=== PATIENT | male | born 1935 | race Caucasian/White ===

== ENCOUNTER 2017-05-12 12:03 | Inpatient (IN) | payer MEDICARE ==
[~2017-05-12] VITALS: Ht 170.2 cm; Wt 94.3 kg
[2017-05-24] MEDS ORDERED: MULTTAB23 PO (09:13)
[2017-05-24] MEDS ORDERED: ASPI81TA5 PO (09:13)
[2017-05-24] MEDS ORDERED: LISI10TA3 PO (09:13)
[2017-05-24] MEDS ORDERED: PROBCAP28 PR (09:13)
[2017-06-08] MEDS ORDERED: POVIDONE IODINE 7.5% SCRUB 118 ML BOTTLE TOPICAL SCH (05:45)
[2017-06-08] MEDS ORDERED: VANCOMYCIN 1000 MG/NS 250 ML (for <70 kg) IV SCH ×2 (05:45)
[2017-06-08] MEDS ORDERED: METOPROLOL TARTRATE 25 MG TAB PO PRN (05:45)
[2017-06-08] MEDS ORDERED: CHLORHEXIDINE GLUCONATE 2 % 1 PACK (2 CLOTHS) TOPICAL PRN (05:45)
[2017-06-08] MEDS ORDERED: INSULIN HUMAN REGULAR 1,000 UNITS/10 ML VIAL SQ PRN (05:45)
[2017-06-08] MEDS ORDERED: SODIUM CHLORID 0.9% 500 ML IV PRN (05:45)
[2017-06-08] MEDS ORDERED: LACTATED RINGER'S 1000 ML IV PRN (05:45)
[2017-06-08] MEDS ORDERED: ceFAZolin 2 GM PREMIX 50 ML IV SCH (05:45)
[2017-06-08] MEDS ORDERED: POVIDONE IODINE 5% (ANTISEPSIS KIT) 4 APPLICATIONS EACH NARE PRN (05:45)
[2017-06-08] MEDS ORDERED: EXPAREL PERI-ARTICULAR INJECTION (TOTAL VOL. 60 ML) P-ARTICULR SCH ×2 (06:00)
[2017-06-08] MEDS ORDERED: TRANEXAMIC ACID INJ 897 MG in SODIUM CHLORIDE 0.9% INJ 100 ML IV SCH (06:00)
[2017-06-08] MEDS ORDERED: ACETAMINOPHEN 1000 MG/100 ML 100 ML IV ONE (07:03)
[2017-06-08] MEDS ORDERED: GENTAMICIN SULFATE 80 MG/2 ML VIAL ONE (07:03)
[2017-06-08] MEDS ORDERED: HYDR-3288 PO (07:44)
[2017-06-08] MEDS ORDERED: XARE10TA PO (07:44)
[2017-06-08] MEDS ORDERED: MISCELLANEOUS NURSING INFORMATION XX PRN (07:45)
[2017-06-08] MEDS ORDERED: NALOXONE HCL 0.4 MG/ML AMP IV PRN (07:45)
[2017-06-08] MEDS ORDERED: MORPHINE SULFATE 8 MG/ML INJ IM PRN (07:45)
[2017-06-08] MEDS ORDERED: ACETAMINOPHEN/HYDROcodone 325 MG/7.5 MG TAB PO PRN (07:45)
[2017-06-08] MEDS ORDERED: MISCELLANEOUS PHARMACY INFORMATION XX ONE (07:45)
[2017-06-08] MEDS ORDERED: SODIUM CHLORIDE 0.9% FLUSH 5 ML FLUSH IVF PRN (07:45)
[2017-06-08] MEDS ORDERED: MORPHINE SULFATE 30 MG/30 ML PCA IV SCH (07:45)
[2017-06-08] MEDS ORDERED: Post-op Orders (for Pharmacy) MISC XX ONE (07:45)
[2017-06-08] MEDS: SODIUM CHLORIDE 0.9% FLUSH 5 ML FLUSH IVF SCH ×2 (09:00→21:00)
[2017-06-08] MEDS: LISINOPRIL 10 MG TAB PO SCH (09:00)
[2017-06-08] MEDS: MAGNESIUM HYDROXIDE SUSP 30 ML CUP PO SCH ×2 (09:00→21:03)
--- NOTE | 2017-06-08 09:21 | MH ---
cc: SHERI JERRY DATE OF ADMISSION 06/08/2017 ADMISSION DIAGNOSIS Right hip osteoarthritis. HISTORY This is an 82-year-old male with significant right hip pain. Investigative studies shows evidence of severe arthritis of the right hip. Despite conservative care, the patient continued to be painful and symptomatic. He presents now for surgical treatment. PAST MEDICAL HISTORY, SOCIAL HISTORY AND FAMILY HISTORY, REVIEW OF SYSTEMS See attached notes. PHYSICAL EXAMINATION An 82-year-old male in moderate stress with his right hip. HEENT: Normocephalic, atraumatic. Pupils equal, round, reactive to light and accommodation. Extraocular motion intact. NECK: Supple. CHEST: Clear. HEART: Regular rate and rhythm. ABDOMEN: Soft and nontender with normoactive bowel sounds. MUSCULOSKELETAL: Examination of the right hip pain with range of motion especially with internal and external rotation. NEUROLOGIC AND VASCULAR: Examination is within normal limits. IMPRESSION Osteoarthritis right hip. PLAN Right total hip replacement arthroplasty, direct anterior exposure. CONSENT The risks for surgery including infection, bleeding, loss of motion, continued pain, need for further surgery, neurologic vascular injury. The patient understands these issues and wishes to press on with surgery as outlined above. MD NESTOR Hull/BRONWYN /6:59 AM /9:12 AM
--- NOTE | 2017-06-08 09:39 | PD.OP ---
cc: Wolf Marino MD Operative Report Date of Surgery: Jun 08, 2017 Preoperative Diagnosis: Osteoarthritis right hip Postoperative Diagnosis: Same Procedure: Right total hip replacement arthroplasty, direct anterior exposure Anesthesia: Gen. Surgeon: Wolf Marino Matte Cutter(s): MITALI Darby Operation and Findings: EBL: 400 cc INDICATION: This patient presents with significant hip pain related to severe osteoarthritis of the right hip. Despite extensive conservative care this patient continues to be painful and now presents for surgical treatment. NOTE: Adriana Darby PA-C was present for the entire surgical procedure as my assistant general manager. In my medical opinion her skill and care was necessary for the proper management of this patient. COMPONENTS: COMPANY: [employer] CUP: [place], 56 mm, 100 series, gription surface LINER: Altrx 36, neutral STEM: [place], size 10, high offset, hydroxyapatite-coated HEAD: 36 mm, metal, +1.5, /14 taper PROCEDURE: This patient was brought to the operating room and anesthetized in the supine position and positioned on the fracture table with both legs held extended. The right hip and leg was scrubbed with alcohol followed by Hibiclens followed by ChloraPrep and draped sterilely. Antibiotics were given within routine time window and a timeout was done. A 4 inch incision was made starting 2 cm distal and 2 cm lateral to the anterior superior iliac spine. The fascia anatoly was opened longitudinally. The interval between the fascia anatoly and the rectus was opened down to the capsule of the hip joint. Retractors were positioned allowing good visualization of the capsule. This was opened longitudinally and flaps were created. Stay sutures were utilized. Exposure was excellent. The neck was cut at the proper location using fluoroscopy as a guide. The head was removed. Deep retractors were positioned allowing good visualization of the acetabulum. Acetabulum was deepened down to the floor starting with a proper size reamer and reaming up to 55 mm. A trial was utilized. Fluoroscopy was used to check position and confirmed satisfactory alignment. The rim was reamed with a to 6 mm reamer and the final cup was positioned in approximately 20 of anteversion and 40-45 of abduction. Position was satisfactory. A single hole eliminator was positioned followed by the final liner. The lifting hook was utilized. The leg was dropped to the floor, maximally externally rotated and brought across the midline. Retractors were positioned. A box osteotome was utilized followed by progressive broaching to the proper stem size. Trial reduction showed excellent alignment and fit. With 60 of external rotation the leg was dropped to the floor without evidence of anterior subluxation. The wound was irrigated. The final stem was inserted and was found to be very stable. The final reduction using the final head. Stability was as previously noted. Intraoperative x-rays were taken. The wound was irrigated copiously. Hemostasis was controlled. Local anesthesia was utilized. The capsule was repaired with #2 Tycron sutures. The fascia anatoly was repaired with running 0 PDS on a loop. Subcutaneous tissue was approximated with 2-0 Vicryl and skin with running intradermal 3-0 Vicryl followed by Steri-Strips. A sterile dressing was applied. The patient was awakened and taken to the recovery room in satisfactory condition. FINDINGS: There was severe osteoarthritis of the right hip. It was bone on bone in the cephalad portion of the acetabulum. The final fit and stability appeared to be excellent. We intentionally lengthened this right leg approximately 3-4 mm Wolf Marino MD Jun 08, 2017 09:39
[2017-06-08 10:05] VITALS: O2SAT 95
[2017-06-08] MEDS ORDERED: DO NOT ADM ANY ANTICOAGULANT DRUGS PRN (10:08)
[2017-06-08] MEDS: LACTATED RINGER'S 1000 ML INJ 1,000 ML IV SCH ×2 (10:30→20:30)
[2017-06-08] MEDS ORDERED: PROPOFOL 200 MG/20 ML AMP IV ONE (12:00)
[2017-06-08] MEDS ORDERED: ePHEDrine/NS 25 MG/5 ML SYR IV ONE (12:00)
[2017-06-08] MEDS ORDERED: ONDANSETRON HCL 4 MG/2 ML VIAL IV PUSH ONE ×2 (12:00→18:45)
[2017-06-08] MEDS ORDERED: PHENYLEPH/NS 1000 MCG/10 ML SYR IV ONE (12:00)
[2017-06-08] MEDS ORDERED: NEOSTIGMINE 3 MG/3 ML SYR IV ONE (12:00)
[2017-06-08] MEDS ORDERED: LACTATED RINGER'S 1000 ML INJ 2,000 ML IV ONE (12:00)
[2017-06-08 15:05] VITALS: O2SAT 96
[2017-06-08 15:23] VITALS: BP 149/71; PULSE 97; RESP 18; TEMP 96.4; O2SAT 97
[2017-06-08] MEDS: PCA - TOTAL MG MORPHINE DELIVERED PER SHIFT SCH ×2 (15:30→21:31)
--- NOTE | 2017-06-08 17:54 | RADRPT ---
EXAM DATE/TIME: 06/08/2017 08:13 [place] COMPARISON: No previous studies available for comparison. INDICATIONS : Right anterior hip replacement. MEDICAL HISTORY : Hypertension. Arthritis. SURGICAL HISTORY : Cholecystectomy. ENCOUNTER: Initial ACUITY: 1 day PAIN SCORE: Non-responsive. LOCATION: Right anterior hip. FINDINGS: C-arm matrix views reveal a total hip prosthesis well seated. CONCLUSION: Well-seated total hip prosthesis Reginaldo Patel MD on June 08, 2017 at 17:52 Board Certified Radiologist. This report was verified electronically.
[2017-06-08 19:42] VITALS: BP 147/73; PULSE 101; RESP 18; TEMP 97.5; O2SAT 98
[2017-06-08] MEDS: SENNOSIDES 8.6 MG TAB PO SCH (21:03)
[2017-06-09] VITALS (8 sets, daily range): BP systolic 114–142; BP diastolic 58–73; PULSE 76–109; RESP 17–18; TEMP 96.8–99.6; O2SAT 93–98
[2017-06-09] MEDS ORDERED: ONDANSETRON HCL 4 MG/2 ML VIAL IV PUSH PRN (01:00)
[2017-06-09] MEDS: PCA - TOTAL MG MORPHINE DELIVERED PER SHIFT SCH ×3 (06:26→21:33)
--- NOTE | 2017-06-09 07:53 | PD.ORT.PN ---
Subjective Subjective Remarks No complaints. Sitting in his chair. Ambulating with walker Objective Vitals Vital Signs Date Time Temp Pulse Resp B/P (MAP) Pulse Ox O2 Delivery O2 Flow Rate FiO2 06/09/17 06:26 18 06/09/17 03:06 98.8 89 18 114/62 (79) 95 06/09/17 00:18 98.3 101 17 128/58 (81) 96 06/08/17 21:31 18 06/08/17 19:42 97.5 101 18 147/73 (97) 98 06/08/17 15:30 18 06/08/17 15:23 96.4 97 18 149/71 (97) 97 06/08/17 15:05 94 16 96 Nasal Cannula 2 06/08/17 15:00 97.6 96 16 140/75 (96) 96 Nasal Cannula 2 06/08/17 14:00 95 16 143/74 (97) 95 Nasal Cannula 2 06/08/17 13:00 97 16 148/73 (98) 95 Nasal Cannula 2 06/08/17 12:00 100 16 149/71 (97) 94 Nasal Cannula 2 06/08/17 11:30 99 15 145/70 (95) 94 Nasal Cannula 2 06/08/17 11:00 97.8 97 15 140/75 (96) 98 Nasal Cannula 3 06/08/17 10:45 98 15 137/71 (93) 97 Nasal Cannula 3 06/08/17 10:36 15 06/08/17 10:31 15 06/08/17 10:30 96 14 138/69 (92) 96 Nasal Cannula 3 06/08/17 10:15 98 14 139/70 (93) 96 Nasal Cannula 3 06/08/17 10:05 98.7 103 12 140/75 (96) 95 Nasal Cannula 3 I/O 06/08/17 06/08/17 06/08/17 06/09/17 06/09/17 06/09/17 07:00 15:00 23:00 07:00 15:00 23:00 Intake Total 2500 ml 940 ml Output Total 1200 ml 1900 ml 2900 ml Balance 1300 ml -960 ml -2900 ml Intake Oral 360 ml IV Total 580 ml Other 2500 ml Output Urine Total 800 ml 1900 ml 2900 ml Estimated Blood Loss 400 ml # Voids 1 # Bowel Movements 0 2 Objective Remarks Dressing dry. Mild swelling. No calf tenderness. Neuro exam normal Assessment & Plan Ortho Post Op Day #: 1 Problem List: Assessment and Plan Osteoarthritis right hip. Surgery: Right SHANIA, anterior: POD #1 PLAN: Discharge to home if does well with physical therapy. [place] for pain. Home healthcare. Home physical therapy. Xarelto for 25 days. Follow-up in 2 weeks Wolf Marino MD Jun 09, 2017 07:53
--- NOTE | 2017-06-09 07:56 | HHI.DS ---
Discharge Summary Admission Date Jun 08, 2017 at 05:26 Discharge Date: Jun 09, 2017 Admitting Diagnosis Osteoarthritis right hip Diagnosis: (1) Osteoarthritis of right hip Diagnosis: Principal ICD Codes: M16.11 - Unilateral primary osteoarthritis, right hip Procedures Right total hip replacement, direct anterior Brief History This is a 82 year old male patient with a long-standing history of arthritis of the right hip. Conservative care included medications, injections, altered activity, physical therapy. He failed conservative care and was felt to be a candidate for hip replacement PE at Discharge Dressing dry. Mild swelling. No calf tenderness. Neuro exam normal Hospital Course He did well first postop day. He was out of bed and ambulating. He was seen by physical therapy and felt to be satisfactory for discharge to home Pt Condition on Discharge: Good Discharge Disposition: Disch w/ Home Health Serv Discharge Instructions Diet Instructions: As Tolerated, No Restrictions Activities You Can Perform: Weight Bearing as Wolf Connor MD Jun 09, 2017 07:56
[2017-06-09] MEDS: MAGNESIUM HYDROXIDE SUSP 30 ML CUP PO SCH ×2 (08:13→21:31)
[2017-06-09] MEDS: LISINOPRIL 10 MG TAB PO SCH (08:13)
[2017-06-09] MEDS: RIVAROXABAN 10 MG TAB PO SCH (08:13)
[2017-06-09] MEDS: ACETAMINOPHEN/HYDROcodone 325 MG/7.5 MG TAB PO PRN ×3 (08:14→18:00)
[2017-06-09] MEDS: LACTATED RINGER'S 1000 ML INJ 1,000 ML IV SCH ×2 (08:14→21:30)
[2017-06-09] MEDS: SODIUM CHLORIDE 0.9% FLUSH 5 ML FLUSH IVF SCH ×2 (08:14→21:00)
[2017-06-09] MEDS ORDERED: WALKER WHEELS/F1 MIS (11:28)
[2017-06-09] MEDS ORDERED: COMMODE 3-IN-11 MIS (11:29)
--- NOTE | 2017-06-09 11:29 | HHI.DCPOC ---
Discharge Care Plan Diagnosis: (1) Osteoarthritis of right hip Your Health Problems Are: Incision/Drains Inflammation Goals to Promote Your Health * To prevent worsening of your condition and complications * To maintain your health at the optimal level Directions to Meet Your Goals Take your medications as prescribed Follow your dietary instruction Follow activity as directed Keep your appointments as scheduled Take your immunizations and boosters as scheduled If your symptoms worsen call your PCP, if no PCP go to Urgent Care Center or Emergency Room Smoking is Dangerous to Your Health. Avoid second hand smoke Call the 24-hour hour crisis hotline for domestic abuse at Paola Rayo Jun 09, 2017 11:29
--- NOTE | 2017-06-09 11:31 | HHI.FF ---
Face to Face Verification Diagnosis: (1) Osteoarthritis of right hip Physical Therapy Gait training, Safety evaluation, Transfer training, bed to chair Hip: Total hip, Protocol: Right, Progress to weight bearing Right LE Weight Bearing: WB as tolerated Additional Instructions PT 4 days/wk for 2 weeks. WBAT RLE. Anterior approach. Gait training, transfers, LE strengthening. Nursing RN Days per Week: 2 x Week(s): 1 Dressing Changes: Do not change dressing Additional Instructions Vitals assessment. Dressing assessment - do not change unless saturated. I have seen patient Kwesi Morris on 06/09/17. My clinical findings support the need for the requested home health care services because: Limited ability to care for self High risk of falls I certify that my clinical findings support that this patient is homebound because: Post-op weakness Unsteady gait/balance Paola Rayo Jun 09, 2017 11:31
--- NOTE | 2017-06-09 11:34 | HHI.DS ---
Discharge Summary Admission Date Jun 08, 2017 at 05:26 Discharge Date: Jun 10, 2017 Admitting Diagnosis see below Diagnosis: (1) Osteoarthritis of right hip Diagnosis: Principal ICD Codes: M16.11 - Unilateral primary osteoarthritis, right hip Procedures Right total hip replacement, direct anterior Brief History This is a 82 year old male patient with a history of bilateral hip pain. He began having increased right hip pain following treatment of his left hip by early 2016. Imaging studies were performed and he was found to have substantial right hip arthritis. Conservative measures were pursued in the form of diclofenac, physical therapy, and a steroid injection. All treatments provided only temporary relief and the patient's function continued to decline. Surgical treatment was then recommended in the form of right total hip arthroplasty, direct anterior approach. The patient agreed and presents now for surgical treatment. PE at Discharge Dressing dry. Mild swelling. No calf tenderness. Neuro exam normal Hospital Course Surgical treatment was performed on the day of admission without complication. He recovered well in PACU and was transferred to the orthopaedic floor. Pain was controlled with IV and oral medications. DVT prophylaxis was initiated with Xarelto pod#1. He was compliant with physical therapy and all restrictions. He struggled with urinary retention day one but that resolved day 2. After 2 days he was found to be stable and discharged home with home health care. He was instructed to continue his xarelto for 25 days, continue a high fiber diet for 3-5 days and to continue physical therapy. Pt Condition on Discharge: Stable Discharge Disposition: Disch w/ Home Health Serv Discharge Instructions Diet Instructions: As Tolerated, No Restrictions, High Fiber Diet Activities You Can Perform: Weight Bearing as Zain Additional Activity Instruc.: Anterior SHANIA procotol New Medications: Commode 3-in-1 (Commode 3-in-1) 1 Mis Mis EA .ROUTE DIRECTED, #1 0 Refills Hydrocodone-Acetaminophen ([place]) 7.5-325 mg Tab 1 TAB PO Q4H PRN for PAIN, #50 TAB 0 Refills Rivaroxaban (Xarelto) 10 Mg Tab 10 MG PO DAILY PRN for Prevent Blood Clot, #25 TAB 0 Refills Walker with Front Wheels (Walker with Front Wheels) 1 Mis Mis EA .ROUTE DIRECTED, #1 0 Refills Continued Medications: Aspirin (Aspirin DR) 81 Mg Tabdr 81 MG PO EVERY OTHER DAY, TAB 0 Refills Lisinopril (Lisinopril) 10 Mg Tab 10 MG PO DAILY, #30 TAB 0 Refills Multiple Vitamins W/ Minerals (Multi For Him 50+) 1 Tab Tab 1 TAB PO DAILY Probiotic Product (Probiotic Daily) 1 Cap Cap 1 CAP HI DAILY Paola Rayo Jun 09, 2017 11:34
[2017-06-09] MEDS: TAMSULOSIN HCL 0.4 MG CAP PO SCH (17:59)
[2017-06-09] MEDS: SENNOSIDES 8.6 MG TAB PO SCH (21:31)
[2017-06-10 03:08] VITALS: O2SAT 96
[2017-06-10 08:00] VITALS: BP 129/74; PULSE 114; RESP 18; TEMP 98.6; O2SAT 92
[2017-06-10] MEDS: SODIUM CHLORIDE 0.9% FLUSH 5 ML FLUSH IVF SCH (08:38)
[2017-06-10] MEDS: LISINOPRIL 10 MG TAB PO SCH (08:38)
[2017-06-10] MEDS: ACETAMINOPHEN/HYDROcodone 325 MG/7.5 MG TAB PO PRN (08:38)
[2017-06-10] MEDS: RIVAROXABAN 10 MG TAB PO SCH (08:38)
[2017-06-10] MEDS: TAMSULOSIN HCL 0.4 MG CAP PO SCH (08:38)
[2017-06-10] MEDS: MAGNESIUM HYDROXIDE SUSP 30 ML CUP PO SCH (08:38)
--- NOTE | 2017-06-10 08:48 | PD.ORT.PN ---
Subjective Subjective Remarks Doing well today. Right hi ppain well controlled on PO meds. Able to urinate well last night. Had a BM. Good appetite. Overall pleased. Ready to d/c home today. Objective Vitals Vital Signs Date Time Temp Pulse Resp B/P (MAP) Pulse Ox O2 Delivery O2 Flow Rate FiO2 06/10/17 03:08 96 06/09/17 23:20 98.2 95 18 122/59 (80) 97 06/09/17 19:25 99.6 76 18 142/73 (96) 98 06/09/17 16:00 97.5 105 18 139/69 (92) 94 06/09/17 14:19 93 06/09/17 12:00 98.5 105 18 142/71 (94) 97 I/O 06/09/17 06/09/17 06/09/17 06/10/17 06/10/17 06/10/17 07:00 15:00 23:00 07:00 15:00 23:00 Intake Total 600 ml 480 ml 480 ml Output Total 2900 ml 100 ml 700 ml 950 ml Balance -2900 ml 500 ml -220 ml -470 ml Intake Oral 600 ml 480 ml 480 ml Output Urine Total 2900 ml 100 ml 700 ml 950 ml # Voids 1 1 # Bowel Movements 2 0 0 1 Procedures Right total hip replacement, direct anterior Objective Remarks Sitting up in bed and RN at bedside VSS RLE Dressing c/d/i, no new drainage, mild swelling and warmth, no erythema, +motor at distal, +sens, +nvi calf supple, neg homans Assessment & Plan Ortho Post Op Day #: 2 Problem List: (1) Osteoarthritis of right hip ICD Codes: M16.11 - Unilateral primary osteoarthritis, right hip Qualifiers: Qualified Codes: M16.11 - Unilateral primary osteoarthritis, right hip Assessment and Plan Osteoarthritis right hip. Surgery: Right SHANIA, anterior: POD #2 Urinary retention resolved. Ok to d/c home w [facility] after PT today. [place] for pain. PT - WBAT RLE. Anterior shania protocol. Hold dressing changes unless saturated. Xarelto for 25 days. Follow-up in 2 weeks as scheduled. F2F written. Paola Rayo Jun 10, 2017 08:48
[2017-06-10] MEDS: LACTATED RINGER'S 1000 ML INJ 1,000 ML IV SCH (09:52)
== END 2017-06-10 12:34 | disposition home health service (06) | DRG 470 ==
LOC: HSDI 06-08 05:26 → EDUNIT# 06-08 07:30 → N06A 06-08 15:38
PROVIDERS: ADMIT Orthopaedic Surgery Orthopaedic Surgery of the Spine; ATTEND Orthopaedic Surgery Orthopaedic Surgery of the Spine
PROC: 0SR902A Replacement of Right Hip Joint with Metal on Polyethylene Synthetic Substitute, Uncemented, Open Approach (ICD-10-PCS; principal; 2017-06-08 07:13)
DX: M16.11 Unilateral primary osteoarthritis, right hip (principal); R33.9 Retention of urine, unspecified; I10 Essential (primary) hypertension; M54.5 Low back pain; Z87.891 Personal history of nicotine dependence
CPT/HCPCS: 73502; 76000; 86850; 86900; 86901; 86920; 94150; C1776; C9290; J0131; J0690; J1580; J2270; J2370; J2405; J2710; J3010; J3370; J7050; J7120

== ENCOUNTER → 2017-05-24 | Outpatient (CLI) | payer MEDICARE ==
[~2017-05-24] MED LIST: ASPI81TA5 PO; COMMODE 3-IN-11 MIS; HYDR-3288 PO; LISI10TA3 PO; MULTTAB23 PO; PROBCAP28 PR; WALKER WHEELS/F1 MIS; XARE10TA PO
[2017-05-24 10:05] LABS: AUTOMATED NEUTROPHIL # 3.7 TH/MM3 (1.8-7.7); BASOPHIL # 0.1 TH/MM3 (0-0.2); BASOPHIL % 0.8 % (0.0-2.0); EOSINOPHIL # 0.2 TH/MM3 (0-0.4); EOSINOPHIL % 2.5 % (0.0-4.0); HEMATOCRIT 44.4 % (39.0-51.0); HEMO FLAGS DIFF FINAL; LYMPH % 26.8 % (9.0-44.0); LYMPHOCYTE # 1.7 TH/MM3 (1.0-4.8); MEAN CORPUSCULAR HEMOGLOBIN 29.6 PG (27.0-34.0); MEAN CORPUSCULAR HGB CONC 34.4 % (32.0-36.0); MONO % 13.6 % (0.0-8.0); NEUT % 56.3 % (16.0-70.0); PLATELET COUNT 255 TH/MM3 (150-450); RED BLOOD COUNT 5.16 MIL/MM3 (4.50-5.90); RED CELL DISTRIBUTION WIDTH 13.8 % (11.6-17.2); WHITE BLOOD COUNT 6.5 TH/MM3 (4.0-11.0)
[2017-05-24 10:14] LABS: APTT (PATIENT) 29.6 SEC (24.3-30.1); PROTHROMBIN TIME - PATIENT 10.6 SEC (9.8-11.6)
[2017-05-24 10:30] LABS: POTASSIUM 4.5 MEQ/L (3.5-5.1)
[2017-05-24 10:51] LABS: BACTERIA, URINE RARE /hpf; BLOOD, URINE NEG (NEG); COMMENT (UR) CULTURE INDICATED; CULTURE IF INDICATED CULTURE INDICATED; GLUCOSE,URINE NEG (NEG); KETONE, URINE NEG (NEG); MUCUS URINE FEW /lpf (OCC); NITRITE,URINE NEG (NEG); PH, URINE 5.5 (5.0-8.5); URINE COLOR YELLOW (YELLW/STRAW)
== END ==
LOC: CPRE 08:05
PROVIDERS: ATTEND Orthopaedic Surgery Orthopaedic Surgery of the Spine
DX: Z01.810 Encounter for preprocedural cardiovascular examination (principal); Z01.812 Encounter for preprocedural laboratory examination; Z79.01 Long term (current) use of anticoagulants; M16.11 Unilateral primary osteoarthritis, right hip; R82.99 Other abnormal findings in urine
CPT/HCPCS: 36415; 80048; 81001; 85025; 85610; 85730; 87086